=== PATIENT | male | born 1940 | race Hispanic/Latino ===

== ENCOUNTER 2024-03-13 09:34 | Outpatient (CLI) | payer MEDICARE ==
[~2024-03-13 09:34] MED LIST: Iopamidol 370 76% 100 ML VIAL ONE
== END 2024-03-13 09:35 | disposition home or self-care (01) ==
LOC: BICCT 09:34
PROVIDERS: ATTEND Family Medicine
DX: R63.4 Abnormal weight loss (principal)
CPT/HCPCS: 74177; 82565

== ENCOUNTER 2024-04-24 08:00 | Inpatient (IN) | payer MEDICARE ==
[2024-04-24 10:26] VITALS: BMI 21.5
[2024-04-24 11:37] LABS: #Basophils Less than 0.03 10x3/uL (0.0-0.2); %Basophils 0.4 % (0.0-1.0); %Eosinophils 1.8 % (0.0-10.0); %Lymphocytes 16.2 % (21.0-51.0); %Monocytes 7.9 % (0.0-10.0); %Neutrophils 73.5 % (42.0-75.0); Hematocrit 34.7 % (42.0-52.0); Hemoglobin 11.9 g/dL (14.0-18.0); Mean Corpuscular HGB CONC 34.3 g/dL (32.0-36.0); Mean Corpuscular Hemoglobin 33.1 pg (27.0-31.0); Mean Corpuscular Volume 96.4 fL (78.0-98.0); Mean Platelet Volume 9.8 fL (7.4-10.4); Platelet Count 121 10x3/uL (130-400); RBC Distribution Width 11.9 % (11.5-14.5)
[2024-04-24 11:54] LABS: Anion Gap 11 mmol/L (10-20); BUN (Urea Nitrogen) 18 mg/dL (8.4-25.7); Calc. Creatinine Clearance 0 mL/min (70-130); Calcium 9.6 mg/dL (7.8-10.44); Carbon Dioxide 26 mmol/L (23-31); Chloride 105 mmol/L (98-107); Estimated GFR 73; Glucose 87 mg/dL (83-110); Potassium 4.4 mmol/L (3.5-5.1); Sodium 138 mmol/L (136-145)
[2024-04-24 11:59] LABS: Prothrombin Time 13.6 sec (12.0-14.7)
[2024-04-24 12:00] LABS: PTT 30.4 sec (22.9-36.1)
[2024-04-26] MEDS ORDERED: Heparin 5,000 UNITS/ML VIAL ONE (06:40)
[2024-04-26] MEDS ORDERED: Bupivacaine PF 0.5% 30 ML VIAL ONE (06:40)
[2024-04-26] MEDS ORDERED: EPINEPHrine 1 MG/ML VIAL ONE (06:40)
[2024-04-26] MEDS ORDERED: Lidocaine 1% MPF 2 ML VIAL ONE (07:00)
[2024-04-26] MEDS ORDERED: fentaNYL PF 100 MCG/2 ML SYRINGE ONE (07:22)
[2024-04-26] MEDS ORDERED: PROPOFOL 20 ML ONE (07:22)
[2024-04-26] MEDS ORDERED: Sodium Chloride 0.9% 100 ML ONE (07:25)
[2024-04-26] MEDS ORDERED: CEFAZOLIN 2 GM VIAL ONE (07:25)
[2024-04-26] MEDS ORDERED: Midazolam HCl 2 mg/2 ml Vial ONE (07:46)
[2024-04-26] MEDS ORDERED: ePHEDrine Sulfate 50 MG/10 ML VIAL ONE (07:48)
[2024-04-26] MEDS ORDERED: Etomidate 40 MG (20 mL) VIAL ONE (08:28)
[2024-04-26] MEDS ORDERED: SUGAMMADEX SODIUM 200 MG/2 ML VIAL ONE (08:28)
[2024-04-26] MEDS ORDERED: PHENYLEPHRINE-NS 100 MCG/ML 10 ML SYRINGE ONE (08:28)
[2024-04-26] MEDS ORDERED: Glycopyrrolate 0.2 MG/ML 5 ML SYRINGE ONE (08:28)
[2024-04-26] MEDS ORDERED: Dexamethasone 20 MG/5 ML VIAL ONE (08:29)
[2024-04-26] MEDS ORDERED: Lidocaine 1% PF 5 ML VIAL ONE (08:29)
[2024-04-26] MEDS ORDERED: Ondansetron PF 4 MG/2 ML Vial ONE (08:29)
[2024-04-26] MEDS ORDERED: Rocuronium Bromide 10 MG/ML (10ML VIAL) ONE (08:29)
[2024-04-26] MEDS ORDERED: Nitroglycerin 50 MG/250 ML BOT 250 ML IVPB PRN (13:02)
[2024-04-26] MEDS ORDERED: Phenylephrine 40 MG in Sodium Chloride 0.9% 250 ML 250 ML IVPB PRN (13:02)
[2024-04-26] MEDS ORDERED: fentaNYL 50 mcg/mL 1 mL Vial SLOW IVP PRN (13:02)
[2024-04-26] MEDS ORDERED: Ondansetron PF 4 MG/2 ML Vial IVP PRN (13:02)
[2024-04-26] MEDS ORDERED: traMADol HCl 50 MG TAB PO PRN (13:02)
[2024-04-26] MEDS ORDERED: Ipratropium/Albuterol 3 ML NEB NEB PRN (13:02)
[2024-04-26] MEDS: Sodium Chloride 0.9% 1,000 ML IV SCH (13:49)
[2024-04-26] MEDS: Ipratropium/Albuterol 3 ML NEB NEB SCH (14:04)
[2024-04-26] MEDS: CEFAZOLIN 2 GM in Sodium Chloride 0.9% 100 ML IVPB SCH (15:12)
[2024-04-26] MEDS: Acetaminophen 325 MG TAB PO PRN (17:01)
[2024-04-26] MEDS: Atorvastatin Calcium 40 MG TAB PO SCH (21:27)
[2024-04-27 01:37] VITALS: BP 129/55
[2024-04-27 07:29] VITALS: TEMP 98.6
[2024-04-27] MEDS: Amlodipine 5 MG TAB PO SCH (08:31)
[2024-04-27] MEDS: Aspirin 81 mg Enteric Coated Tablet PO SCH (08:31)
[2024-04-27] MEDS: Tamsulosin HCl 0.4 MG CAP PO SCH (08:32)
[2024-04-27] MEDS: Clopidogrel Bisulfate 75 MG TAB PO SCH (08:32)
[2024-04-27] MEDS: Sertraline 100 MG TAB PO SCH (08:34)
[2024-04-27] MEDS: Pantoprazole DR 40 MG TAB PO SCH (08:34)
[2024-04-27] MEDS: Lisinopril 20 MG TAB PO SCH (08:35)
[2024-04-27] MEDS: Isosorbide Mononitrate 30 MG ER.TAB PO SCH (08:36)
== END 2024-04-27 11:00 | disposition home or self-care (01) | DRG 36 ==
LOC: SURG A 04-26 05:58 → CCU 04-26 13:45
PROVIDERS: ADMIT Thoracic Surgery (Cardiothoracic Vascular Surgery); ATTEND Thoracic Surgery (Cardiothoracic Vascular Surgery)
PROC: 037K3DZ Dilation of Right Internal Carotid Artery with Intraluminal Device, Percutaneous Approach (ICD-10-PCS; principal; 2024-04-26)
PROC: 3E033XZ Introduction of Vasopressor into Peripheral Vein, Percutaneous Approach (ICD-10-PCS; 2024-04-26)
DX: I65.21 Occlusion and stenosis of right carotid artery (principal); E78.00 Pure hypercholesterolemia, unspecified; F32.A Depression, unspecified; I10 Essential (primary) hypertension; Z79.82 Long term (current) use of aspirin; Z79.899 Other long term (current) drug therapy; Z98.890 Other specified postprocedural states
CPT/HCPCS: 80048; 85025; 85610; 85730; 86850; 86900; 86901; 94640; C1725; C1769; C1876; C1884; J0171; J0665; J1100; J1642; J1644; J2250; J2405; J2704; J7030; J7620

== ENCOUNTER 2024-04-24 09:46 | Outpatient (CLI) | payer MEDICARE | END 2024-04-24 09:47 | disposition home or self-care (01) | LOC: LABBT 09:46 | PROVIDERS: ATTEND Thoracic Surgery (Cardiothoracic Vascular Surgery) | DX: Z01.810 Encounter for preprocedural cardiovascular examination (principal); I65.21 Occlusion and stenosis of right carotid artery | CPT/HCPCS: 93005; 93010 ==